=== PATIENT | female | born 1970 | race Hispanic/Latino ===

== ENCOUNTER 2019-11-28 12:19 | Emergency (ER) | payer OTHER | END 2019-11-28 14:55 | disposition home or self-care (01) | LOC: EDH 12:19 | DX: N39.0 Urinary tract infection, site not specified (principal); J01.80 Other acute sinusitis; J45.909 Unspecified asthma, uncomplicated; E11.9 Type 2 diabetes mellitus without complications; E07.9 Disorder of thyroid, unspecified; Z88.1 Allergy status to other antibiotic agents; Z88.8 Allergy status to other drugs, medicaments and biological substances ==